=== PATIENT | male | born 1945 | race African-American/Black ===

== ENCOUNTER 2021-04-30 19:51 | Emergency (ER) | payer OTHER ==
[~2021-04-30] VITALS: Ht 170.2 cm; Wt 59.0 kg
[~2021-04-30 19:51] MED LIST: ASPIR 8181 MG PO; TOPROL XL25 MG PO; ZESTRIL20 MG PO; ZOCOR20 MG PO
[2021-04-30] MEDS ORDERED: LEVOTHYROXINE75 MCG PO (20:32)
[2021-04-30] MEDS ORDERED: SERTRALINE HCL100 MG PO (20:33)
[2021-04-30] MEDS ORDERED: PYRIDOSTIGMINE60 M1 PO (20:33)
[2021-04-30 20:34] VITALS: BP 117/84
[2021-05-01 00:50] LABS: ABSOLUTE NEUTROPHILS 4.3 thou/uL (1.4-8.2); BASOPHILS 0.9 % (0.0-2.0); EOSINOPHILS 1.5 % (0.0-3.0); HEMATOCRIT 43.7 % (42.0-52.0); HEMOGLOBIN 15.4 gm/dL (14.0-18.0); LYMPHOCYTES 37.7 % (24.0-44.0); MCH 30.5 pg (26.0-34.0); MCHC 35.2 g/dL (28.0-37.0); MCV 86.6 fL (80.0-100.0); MONOCYTES 8.2 % (1.0-8.0); PLATELET COUNT 287 thou/uL (150-400); POLYS 51.7 % (36.0-66.0); RBC 5.05 mil/uL (4.50-6.00); RDW 12.9 % (10.5-14.5); WBC 8.4 thou/uL (4.0-11.0)
[2021-05-01 00:56] LABS: POTASSIUM 3.1 mmol/L (3.5-5.1)
[2021-05-01 01:06] LABS: ALBUMIN 4.3 g/dL (3.4-5.0); TOTAL BILIRUBIN 0.4 mg/dL (0.2-1.0)
--- NOTE | 2021-05-01 11:08 | EKG ---
[address] [address] ELECTROCARDIOGRAM REPORT Name: CLAU FONSECA Room #: [facility] Damien#: [id number] Admission: 04/30/21 Attend Phys: Discharge: 04/30/21 Date of : 49 Report #: [id number] [facility] ED Test Date: 2021-04-30 Test Time: 20:22:59 Pat Name: CLAU FONSECA Department: Room: Gender: Electronic Gluer: TASHA : 1945 Requested By: Miguel Angel Order Number: [id number] MD: Imer Marquez Measurements Intervals [place] Rate: 75 P: MD: QRS: 72 QRSD: 100 T: 30 QT: 423 QTc: 473 Interpretive Statements Sinus rhythm No significant abnormality No previous ECG available for comparison Electronically Signed On 05-01-2021 11:08:31 [employer] by Imer Marquez [email or web address] <ELECTRONICALLY SIGNED> By: Imer Marquez MD, [facility] 05/01/21 1108 21 21 Imer Marquez MD, FACC /EPI
== END 2021-04-30 21:45 | disposition left against medical advice (07) ==
LOC: ER 19:51
PROVIDERS: Emergency Medicine
DX: I95.1 Orthostatic hypotension (principal); I10 Essential (primary) hypertension; Z79.899 Other long term (current) drug therapy